=== PATIENT | male | born 1965 | race Caucasian/White ===

== ENCOUNTER 2017-04-22 07:59 | Emergency (ER) | payer BC ==
[2017-04-22 08:13] VITALS: BP 149/90; PULSE 98; RESP 18; TEMP 97.8; O2SAT 99
--- NOTE | 2017-04-22 09:22 | C.PDOC ---
History Of Present Illness 52 yr old male presents to the ER with complaints of fever, body aches and cough for the past 2 days. Patient states he cough so hard He " shit his pants" . Patient denies chest pain, SOB, abdominal pain, diarrhea, neck pain, weakness , numbness or headache. Time Seen by Provider: 04/22/17 08:31 Chief Complaint (Nursing): Cough, Cold, Congestion History Per: Patient History/Exam Limitations: no limitations Onset/Duration Of Symptoms: Days (2) Current Symptoms Are (Timing): Still Present Location Of Pain: None Sick Contacts (Context): None Past Medical History Reviewed: Historical Data, Nursing Documentation, Vital Signs Vital Signs: Last Vital Signs Temp 97.8 F 04/22/17 08:08 Pulse 98 H 04/22/17 08:08 Resp 18 04/22/17 08:08 BP 149/90 04/22/17 08:08 Pulse Ox 99 04/22/17 10:25 - Medical History PMH: Diabetes, HTN, Hypercholesterolemia Family History: States: No Known Family Hx - Social History Hx Tobacco Use: No Hx Alcohol Use: Yes Hx Substance Use: No - Immunization History Hx Tetanus Toxoid Vaccination: No Hx Influenza Vaccination: No Hx Pneumococcal Vaccination: No Review Of Systems Except As Marked, All Systems Reviewed And Found Negative. Constitutional: Positive for: Fever (subjective), Other (+ body aches) Cardiovascular: Negative for: Chest Pain Respiratory: Positive for: Cough. Negative for: Shortness of Breath Gastrointestinal: Negative for: Abdominal Pain, Diarrhea Musculoskeletal: Negative for: Neck Pain Neurological: Negative for: Weakness, Numbness, Headache Physical Exam - Physical Exam Appears: Non-toxic, No Acute Distress Skin: Warm, Dry, No Rash Head: Atraumatic, Normacephalic Eye(s): bilateral: Normal Inspection, PERRL, EOMI Ear(s): Bilateral: Normal Oral Mucosa: Moist Lips: No Swelling Throat: Normal, No Erythema, No Exudate, No Drooling Neck: Normal, Normal ROM, Supple Cardiovascular: Rhythm Regular, No Murmur Respiratory: Normal Breath Sounds, No Rales, No Rhonchi, No Stridor, No Wheezing Gastrointestinal/Abdominal: Normal Exam, Soft, No Tenderness, No Guarding, No Rebound Back: No CVA Tenderness Extremity: Normal ROM, No Swelling Neurological/Psych: Oriented x3, Normal Speech ED Course And Treatment O2 Sat by Pulse Oximetry: 99 (RA) Pulse Ox Interpretation: Normal - Other Rad CXR X-Ray: Viewed By Me, Read By Radiologist Interpretation: HISTORY: cough, fever, flu. COMPARISON: None available. TECHNIQUE: Chest PA and lateral. FINDINGS: LUNGS: No focal consolidation. Please note that chest x-ray has limited sensitivity for the detection of pulmonary masses. PLEURA: No significant pleural effusion identified. No definite pneumothorax . CARDIOVASCULAR: Heart size appears within normal limits. OSSEOUS STRUCTURES: No acute osseous abnormality identified. VISUALIZED UPPER ABDOMEN: Unremarkable. OTHER FINDINGS: None. IMPRESSION: No focal consolidation, significant pleural effusion, or definite pneumothorax identified. Medical Decision Making Medical Decision Making: PLAN: * CXR * Influenza * Tylenol PO On re-exam, the patient reports improvement of symptoms. Lungs are CTA, heart is RRR, abdomen is soft, non-tender and tolerating PO well. Ambulatory in the ED steady gait. Follow up with the medical doctor within 1-2 days. Return if worsened. Disposition - Disposition Referrals: Yvette Haddad MD [Staff Provider] - Mian Garvin MD [Staff Provider] - Disposition: HOME/ ROUTINE Disposition Time: 10:20 Condition: GOOD Additional Instructions: Follow up with the medical doctor within 1-2 days withotu fail, return if worsened,. Prescriptions: Ibuprofen [Motrin] 600 mg PO TID #21 tab Oseltamivir [Tamiflu] 75 mg PO BID #9 cap Instructions: Influenza (ED) Forms: [facility] (Greek), Work Excuse - Clinical Impression Clinical Impression: Influenza - PA / PROJECT LEAD / Resident Statement MD/DO has reviewed & agrees with the documentation as recorded. - Scribe Statement The provider has reviewed the documentation as recorded by the Scribe Danielle Rivas All medical record entries made by the Hughibck were at my direction and personally dictated by me. I have reviewed the chart and agree that the record accurately reflects my personal performance of the history, physical exam, medical decision making, and the department course for this patient. I have also personally directed, reviewed, and agree with the discharge instructions and disposition.
--- NOTE | 2017-04-22 09:41 | RAD ---
HISTORY: cough, fever, flu COMPARISON: None available. TECHNIQUE: Chest PA and lateral FINDINGS: LUNGS: No focal consolidation. Please note that chest x-ray has limited sensitivity for the detection of pulmonary masses. PLEURA: No significant pleural effusion identified. No definite pneumothorax . CARDIOVASCULAR: Heart size appears within normal limits. OSSEOUS STRUCTURES: No acute osseous abnormality identified. VISUALIZED UPPER ABDOMEN: Unremarkable. OTHER FINDINGS: None. IMPRESSION: No focal consolidation, significant pleural effusion, or definite pneumothorax identified.
== END 2017-04-22 10:37 | disposition home or self-care (01) ==
LOC: C.ER 07:59
DX: J11.1 Influenza due to unidentified influenza virus with other respiratory manifestations (principal)

== ENCOUNTER 2017-04-24 14:48 | Emergency (ER) | payer BC ==
[2017-04-24 15:19] VITALS: PULSE 97; RESP 18
--- NOTE | 2017-04-24 16:22 | RAD ---
Chest x-ray two views History: Cough. Hemoptysis. Comparison: 04/22/2017 Findings : Mild venous congestion. Mild diffuse increased interstitial markings. Small nodular density projecting at the lateral aspect of the left lower lung zone at the level of the inferior scapula may represent confluence of shadows with ribs and vessels. Small nodule cannot be excluded. Interval follow-up x-ray and/or correlation with chest CT may be helpful if clinically indicated. Heart size within normal limits. Degenerative changes in the spine with paravertebral osteophytes. Question chronic deformity of a mid right lateral rib. Impression: Mild venous congestion. Mild diffuse increased interstitial markings. Small nodular density projecting at the lateral aspect of the left lower lung zone at the level of the inferior scapula may represent confluence of shadows with ribs and vessels. Small nodule cannot be excluded. Interval follow-up x-ray and/or correlation with chest CT may be helpful if clinically indicated.
--- NOTE | 2017-04-24 16:48 | C.PDOC ---
History Of Present Illness 52yo male seen in ED three days ago and treated for Flu. Patient comes in today and states he is experiencing productive cough and chest congestion, resulting in him returning for re-evaluation. Notes blood tinged sputum. No rashes, recent travel Time Seen by Provider: 04/24/17 15:26 Chief Complaint (Nursing): Cough, Cold, Congestion History Per: Patient History/Exam Limitations: no limitations Onset/Duration Of Symptoms: Days Past Medical History Reviewed: Historical Data, Nursing Documentation, Vital Signs Vital Signs: Last Vital Signs Temp 98.4 F 04/24/17 17:08 Pulse 97 H 04/24/17 17:08 Resp 18 04/24/17 17:08 BP 149/90 04/24/17 17:08 Pulse Ox 95 04/24/17 21:44 - Medical History PMH: Diabetes, HTN, Hypercholesterolemia Family History: States: No Known Family Hx - Social History Hx Tobacco Use: No Hx Alcohol Use: Yes Hx Substance Use: No - Immunization History Hx Tetanus Toxoid Vaccination: No Hx Influenza Vaccination: No Hx Pneumococcal Vaccination: No Review Of Systems Constitutional: Negative for: Fever Respiratory: Positive for: Cough, Sputum. Negative for: Shortness of Breath Gastrointestinal: Negative for: Vomiting Musculoskeletal: Negative for: Neck Pain, Back Pain Physical Exam - Physical Exam Appears: Non-toxic, No Acute Distress Skin: Normal Color, Warm, Dry, No Rash Neck: Normal ROM, Trachea Midline, Supple Cardiovascular: Rhythm Regular, No Murmur Respiratory: Normal Breath Sounds, No Accessory Muscle Use, No Rales, No Rhonchi , No Stridor, No Wheezing Extremity: Normal ROM, No Deformity, No Swelling Neurological/Psych: Oriented x3, Normal Speech ED Course And Treatment O2 Sat by Pulse Oximetry: 95 (RA) Pulse Ox Interpretation: Normal Progress Note: CXR ordered and reviewed. Patient treated with Prednisone. Patient is resting comfortably, tolerating PO, and is afebrile at this time. Clinical signs and symptoms are not suggestive of sepsis, meningitis, UTI, pneumonia, intra-abdominal pathology, or cellulitis. Patient will be discharged home, and instructed to follow up with his/her physician in 1-2 days without fail. Patient was instructed to return for any worsening symptoms, persistent fever, neck pain, rash, abdominal pain, or vomiting. Disposition - Disposition Referrals: Mian Garvin MD [Staff Provider] - Disposition: HOME/ ROUTINE Disposition Time: 16:46 Condition: GOOD Additional Instructions: Follow up with the medical doctor with 1-2 days. return if worsened. Prescriptions: predniSONE [Prednisone] 20 mg PO BID #10 tab Promethazine/Codeine [Phenergan/Codeine Oral Syrup] 5 ml PO Q8 PRN #50 ml PRN Reason: Cough Instructions: Influenza (ED) Forms: [employer] (Macedonian) - Clinical Impression Clinical Impression: Viral disease, Influenza - Scribe Statement The provider has reviewed the documentation as recorded by the Scribe (Kathy Cullen) All medical record entries made by the Scribe were at my direction and personally dictated by me. I have reviewed the chart and agree that the record accurately reflects my personal performance of the history, physical exam, medical decision making, and the department course for this patient. I have also personally directed, reviewed, and agree with the discharge instructions and disposition.
[2017-04-24 17:09] VITALS: BP 149/90; TEMP 98.4
[2017-04-24 21:45] VITALS: O2SAT 95
== END 2017-04-24 17:16 | disposition home or self-care (01) ==
LOC: C.ER 14:48
DX: J11.1 Influenza due to unidentified influenza virus with other respiratory manifestations (principal); E11.9 Type 2 diabetes mellitus without complications; E78.00 Pure hypercholesterolemia, unspecified; I10 Essential (primary) hypertension